=== PATIENT | male | born 2000 | race African-American/Black ===

== ENCOUNTER 2020-10-11 11:07 | Emergency (ER) | payer OTHER, SELFPAY ==
[2020-10-11 11:12] VITALS: BP 159/100; PULSE 85; RESP 16; TEMP 37.1; O2SAT 100
--- NOTE | 2020-10-11 12:04 | ED.GENADULT ---
HPI - General Adult General Chief complaint: Upper Respiratory Infection Stated complaint: st Time Seen by Provider: 10/11/20 11:11 Source: patient Mode of arrival: ambulatory Limitations: no limitations History of Present Illness HPI narrative: Patient is a 20-year-old male who presents with 2 weeks duration of sore throat noting aching pain with swallowing denies other URI symptoms or complaints has not taken anything for his symptoms had Covid a month ago which symptoms resolved. Related Data Allergies Allergy/AdvReac Type Severity Reaction Status Date / Time No Known Allergies Allergy Verified 10/11/20 11:14 Review of Systems Review of Systems: All systems reviewed & are unremarkable except as noted in HPI and below PMFSH Social History Social History Smoking status: Never smoker Exam Narrative: Exam Narrative: GENERAL: Well-appearing, well-nourished, and in no acute distress. HEAD: Normocephalic, atraumatic. EYES: PERRLA and EOMI. ENT: Nares clear, no rhinorrhea or epistaxis. Mucous membranes moist. Oropharynx without tonsillar hypertrophy exudate or other lesions. Bilateral TMs pearly mancera nonbulging NECK: Supple. No adenopathy or masses. CHEST: Clear to auscultation. No respiratory distress. No wheezes rales or rhonchi HEART: Regular rate and rhythm. No murmur heard. EXTREMITIES: Normal range of motion. No edema. SKIN: Warm, dry, no rash. NEURO: No focal deficits. Alert and oriented x3. Cranial nerves II through XII grossly intact PSYCH: Normal mood and affect. Course Course Emergency Course: Patient in the room in no distress negative strep rapid test patient will have throat culture and will follow with ENT will be treated symptomatically felt appropriate for discharge home Vital Signs Vital signs: Vital Signs Temperature 98.7 F 10/11/20 11:12 Pulse Rate 85 10/11/20 11:12 Respiratory Rate 16 10/11/20 11:12 Blood Pressure 159/100 H 10/11/20 11:12 Pulse Oximetry 100 10/11/20 11:12 Temperature 98.7 F 10/11/20 11:12 Pulse Rate 85 10/11/20 11:12 Respiratory Rate 16 10/11/20 11:12 Blood Pressure 159/100 H 10/11/20 11:12 Pulse Oximetry 100 11/26/20 11:12 Medical Decision Making MDM Narrative Medical decision making narrative: Patient in the room in no distress aware of case findings treatment plan diagnosis agreeing to follow-up as directed. There are no focal signs of space occupying lesions that are compromising to the ariway. The floor of the mouth is soft with no signs of Ludwigs Angina. Patient is without trismus or drooling and able to swallow secreations. Patient is felt appropriate for discharge home with dental follow up. Vital Signs Vital Signs: Vital Signs Temperature 98.7 F 10/11/20 11:12 Pulse Rate 85 10/11/20 11:12 Respiratory Rate 16 10/11/20 11:12 Blood Pressure 159/100 H 10/11/20 11:12 Pulse Oximetry 100 10/11/20 11:12 Temperature 98.7 F 10/11/20 11:12 Pulse Rate 85 10/11/20 11:12 Respiratory Rate 16 10/11/20 11:12 Blood Pressure 159/100 H 10/11/20 11:12 Pulse Oximetry 100 10/11/20 11:12 Lab Data Labs: Strep Screen Presumptive Negative *(Reference Range: Negative)* Discharge Plan Discharge Clinical Impression: Pharyngitis Patient Disposition: Home, Self-Care Condition: Stable Instructions: Antibiotic Form, Pharyngitis (ED) Additional Instructions: Follow up with your primary care provider and ENT within 1-2 days to set up for reevaluation. Go to ER for shortness of breath, difficulty breathing, chest pain, fever/chills, weakness, nauseau/vomitting, unable to swallow or open the mouth etc. or any other concerns. Follow patient education sheets Take any prescribed medications as directed. Stay well-hydrated If you do not have a drug allergy to tylenol or motrin and can
== END 2020-10-11 13:13 | disposition home or self-care (01) ==
PROVIDERS: Emergency Provider Emergency Medicine
DX: J02.9 Acute pharyngitis, unspecified (principal); Z86.19 Personal history of other infectious and parasitic diseases
CPT/HCPCS: 87081; 87880; 99283